=== PATIENT | male | born 1960 | race American Indian/Alaskan Native ===

== ENCOUNTER 2017-07-18 09:00 | Outpatient (CLI) | payer BC, OTHER ==
--- NOTE | 2017-07-18 10:14 | Ultrasound Report ---
ULTRASOUND RENAL INDICATION: CKD. COMPARISON: None similar at this institution. FINDINGS: Renal sonography suggests mild increased renal cortical echogenicity. Grossly preserved contours. No hydronephrosis. RIGHT KIDNEY measures 10.6 x 5.2 x 6.3 cm with cortical thickness of 2.8 cm. A 2.7 x 2.4 cm upper to mid renal cortical cyst, image 9. LEFT KIDNEY estimated at 10.2 x 6 x 4.8 cm with cortical thickness of 1.9 cm. Couple of small hypoechoic foci/possible cysts measuring 0.7-0.9 cm incidentally seen. URINARY BLADDER appears grossly unremarkable. CONCLUSION: Medical renal disease and small bilateral renal cysts without acute renal sonographic abnormality, as described. Please correlate. Thank you for the opportunity to participate in this patient's care.
== END 2017-07-18 09:01 | disposition home or self-care (01) ==
LOC: US 09:00
PROVIDERS: ATTEND Internal Medicine
DX: I12.9 Hypertensive chronic kidney disease with stage 1 through stage 4 chronic kidney disease, or unspecified chronic kidney disease (principal); N18.4 Chronic kidney disease, stage 4 (severe); N28.1 Cyst of kidney, acquired; J45.909 Unspecified asthma, uncomplicated
CPT/HCPCS: 76770

== ENCOUNTER 2017-08-27 11:05 | Outpatient (CLI) | payer BC, OTHER ==
[2017-08-27 11:28] LABS: Albumin 3.8 g/dL (3.9-5); BUN/Creatinine Ratio 11; Blood Urea Nitrogen 37 mg/dL (9-20); Calcium 9.1 mg/dL (8.4-10.2); Hemolysis Index 8
[2017-08-27 13:50] LABS: Creatinine,Urine 68.9 mg/dL (0.1-20.0)
[2017-08-27 14:04] LABS: Protein/Creatinine Ratio,Urine 3.02
[2017-08-27 19:12] LABS: Hematocrit 39.9 % (35.5-45.6); Hemoglobin 12.9 gm/dl (11.8-15.2); Mean Corpuscular HGB Conc 32 % (32-34); Mean Corpuscular Volume 76 fl (84-94); Platelet Count 224 K/mm3 (140-440); Red Blood Count 5.26 M/mm3 (3.65-5.03); Red Cell Distribution Width 16.1 % (13.2-15.2)
[2017-08-27 19:22] LABS: Mean Corpuscular Hemoglobin 25 pg (28-32)
[2017-08-28 06:59] LABS: Alanine Aminotransferase 22 units/L (7-56)
[2017-08-28 07:34] LABS: Microalbumin/Creatinine Ratio 1911.4 ug/mg
[2017-08-28 08:00] LABS: Chol/HDL Ratio 4.68 %; HDL Cholesterol 41 mg/dL (40-59); LDL Cholesterol,Direct 127 mg/dL (50-130)
== END 2017-08-27 11:06 | disposition home or self-care (01) ==
LOC: LAB 11:05
PROVIDERS: ATTEND Internal Medicine
DX: I12.9 Hypertensive chronic kidney disease with stage 1 through stage 4 chronic kidney disease, or unspecified chronic kidney disease (principal); N18.4 Chronic kidney disease, stage 4 (severe); E11.22 Type 2 diabetes mellitus with diabetic chronic kidney disease; E11.65 Type 2 diabetes mellitus with hyperglycemia; E78.5 Hyperlipidemia, unspecified; R80.9 Proteinuria, unspecified; Z79.899 Other long term (current) drug therapy
CPT/HCPCS: 36415; 80048; 80053; 80061; 82040; 82043; 82570; 83036; 84100; 84156; 85027

== ENCOUNTER 2018-01-21 15:10 | Outpatient (CLI) | payer BC, OTHER ==
[2018-01-21 15:43] LABS: Hematocrit 39.5 % (35.5-45.6); Hemoglobin 12.8 gm/dl (11.8-15.2); Mean Corpuscular HGB Conc 33 % (32-34); Mean Corpuscular Volume 77 fl (84-94); Platelet Count 237 K/mm3 (140-440); Red Blood Count 5.13 M/mm3 (3.65-5.03); Red Cell Distribution Width 15.5 % (13.2-15.2)
[2018-01-21 16:02] LABS: Creatinine,Urine 78.3 mg/dL (0.1-20.0); Protein/Creatinine Ratio,Urine 1.26
[2018-01-21 16:07] LABS: Mean Corpuscular Hemoglobin 25 pg (28-32)
[2018-01-21 16:29] LABS: Albumin 3.6 g/dL (3.9-5); Calcium 8.9 mg/dL (8.4-10.2)
== END 2018-01-21 15:11 | disposition home or self-care (01) ==
LOC: LAB 15:10
PROVIDERS: ATTEND Internal Medicine
DX: I12.9 Hypertensive chronic kidney disease with stage 1 through stage 4 chronic kidney disease, or unspecified chronic kidney disease (principal); E11.22 Type 2 diabetes mellitus with diabetic chronic kidney disease; R80.0 Isolated proteinuria; N18.4 Chronic kidney disease, stage 4 (severe); E87.5 Hyperkalemia; E66.9 Obesity, unspecified; N25.81 Secondary hyperparathyroidism of renal origin; E78.5 Hyperlipidemia, unspecified; E78.00 Pure hypercholesterolemia, unspecified; J45.909 Unspecified asthma, uncomplicated; G47.37 Central sleep apnea in conditions classified elsewhere; Z79.4 Long term (current) use of insulin; Z88.6 Allergy status to analgesic agent
CPT/HCPCS: 36415; 80048; 82040; 82570; 84100; 84156; 85027

== ENCOUNTER 2018-08-19 12:48 | Outpatient (CLI) | payer BC, OTHER ==
[2018-08-19 13:34] LABS: Hematocrit 41.2 % (35.5-45.6); Hemoglobin 13.4 gm/dl (11.8-15.2); Mean Corpuscular HGB Conc 32 % (32-34); Mean Corpuscular Volume 76 fl (84-94); Platelet Count 290 K/mm3 (140-440); Red Blood Count 5.43 M/mm3 (3.65-5.03); Red Cell Distribution Width 16.5 % (13.2-15.2)
[2018-08-19 14:07] LABS: Calcium 9.2 mg/dL (8.4-10.2)
[2018-08-19 15:56] LABS: Creatinine,Urine 87.8 mg/dL (0.1-20.0); Protein/Creatinine Ratio,Urine 2.21
== END 2018-08-19 12:49 | disposition home or self-care (01) ==
LOC: LAB 12:48
PROVIDERS: ATTEND Internal Medicine
DX: I12.9 Hypertensive chronic kidney disease with stage 1 through stage 4 chronic kidney disease, or unspecified chronic kidney disease (principal); E11.22 Type 2 diabetes mellitus with diabetic chronic kidney disease; N18.4 Chronic kidney disease, stage 4 (severe); R80.0 Isolated proteinuria; E87.5 Hyperkalemia; E66.9 Obesity, unspecified; E78.5 Hyperlipidemia, unspecified; E78.00 Pure hypercholesterolemia, unspecified; J45.909 Unspecified asthma, uncomplicated; Z79.4 Long term (current) use of insulin
CPT/HCPCS: 36415; 80048; 82040; 82570; 84100; 84156; 85027

== ENCOUNTER 2018-11-06 09:50 | Outpatient (CLI) | payer BC, OTHER ==
[2018-11-06 10:30] LABS: Hematocrit 41.9 % (35.5-45.6); Hemoglobin 13.6 gm/dl (11.8-15.2); Mean Corpuscular HGB Conc 33 % (32-34); Mean Corpuscular Volume 76 fl (84-94); Platelet Count 250 K/mm3 (140-440); Red Blood Count 5.54 M/mm3 (3.65-5.03); Red Cell Distribution Width 16.4 % (13.2-15.2)
[2018-11-06 10:53] LABS: Albumin 3.8 g/dL (3.9-5); Calcium 9.3 mg/dL (8.4-10.2)
[2018-11-06 11:21] LABS: Creatinine,Urine 81.1 mg/dL (0.1-20.0)
[2018-11-06 12:06] LABS: Creatinine Clearance Urine 41.45
== END 2018-11-06 09:51 | disposition home or self-care (01) ==
LOC: LAB 09:50
PROVIDERS: ATTEND Internal Medicine
DX: I12.9 Hypertensive chronic kidney disease with stage 1 through stage 4 chronic kidney disease, or unspecified chronic kidney disease (principal); E11.22 Type 2 diabetes mellitus with diabetic chronic kidney disease; N18.4 Chronic kidney disease, stage 4 (severe); E87.5 Hyperkalemia; E66.9 Obesity, unspecified; N25.81 Secondary hyperparathyroidism of renal origin; G47.37 Central sleep apnea in conditions classified elsewhere; R80.0 Isolated proteinuria; Z79.4 Long term (current) use of insulin
CPT/HCPCS: 36415; 80048; 82040; 82565; 82570; 82575; 84100; 84156; 85027

== ENCOUNTER 2019-03-24 11:28 | Outpatient (CLI) | payer BC, OTHER ==
[2019-03-24 11:58] LABS: Hematocrit 41.6 % (35.5-45.6); Hemoglobin 13.4 gm/dl (11.8-15.2); Mean Corpuscular HGB Conc 32 % (32-34); Mean Corpuscular Volume 77 fl (84-94); Platelet Count 253 K/mm3 (140-440); Red Blood Count 5.44 M/mm3 (3.65-5.03); Red Cell Distribution Width 15.8 % (13.2-15.2)
[2019-03-24 12:20] LABS: Calcium 9.3 mg/dL (8.4-10.2); Chol/HDL Ratio 5.05 %
[2019-03-24 15:19] LABS: Creatinine,Urine 88.6 mg/dL (0.1-20.0); Protein/Creatinine Ratio,Urine 2.22
[2019-03-27 14:54] LABS: Vitamin D, 25-OH, D2 <4 ng/mL
== END 2019-03-24 11:29 | disposition home or self-care (01) ==
LOC: LAB 11:28
PROVIDERS: ATTEND Internal Medicine
DX: I12.9 Hypertensive chronic kidney disease with stage 1 through stage 4 chronic kidney disease, or unspecified chronic kidney disease (principal); E11.22 Type 2 diabetes mellitus with diabetic chronic kidney disease; N18.4 Chronic kidney disease, stage 4 (severe); R80.0 Isolated proteinuria; E87.5 Hyperkalemia; E66.9 Obesity, unspecified; N25.81 Secondary hyperparathyroidism of renal origin; G47.37 Central sleep apnea in conditions classified elsewhere; R60.1 Generalized edema; E78.2 Mixed hyperlipidemia; E78.00 Pure hypercholesterolemia, unspecified; J45.909 Unspecified asthma, uncomplicated; Z79.4 Long term (current) use of insulin
CPT/HCPCS: 36415; 80053; 80061; 82040; 82306; 82570; 84100; 84156; 85027

== ENCOUNTER 2019-11-05 12:05 | Outpatient (CLI) | payer BC, OTHER ==
[2019-11-05 12:49] LABS: Basophils # (Auto) 0.1 K/mm3 (0.0-0.1); Basophils % (Auto) 1.1 % (0.0-1.8); Eosinophils # (Auto) 0.4 K/mm3 (0.0-0.4); Hematocrit 39.1 % (35.5-45.6); Hemoglobin 12.4 gm/dl (11.8-15.2); Lymphocytes # (Auto) 2.5 K/mm3 (1.2-5.4); Lymphocytes % (Auto) 27.8 % (13.4-35.0); Mean Corpuscular HGB Conc 32 % (32-34); Mean Corpuscular Volume 78 fl (84-94); Monocytes # (Auto) 0.9 K/mm3 (0.0-0.8); Monocytes % (Auto) 9.5 % (0.0-7.3); Platelet Count 269 K/mm3 (140-440); Red Blood Count 5.04 M/mm3 (3.65-5.03); Red Cell Distribution Width 15.8 % (13.2-15.2)
[2019-11-05 13:11] LABS: Albumin 3.8 g/dL (3.9-5); Calcium 9.1 mg/dL (8.4-10.2)
[2019-11-05 13:43] LABS: Erythrocyte Sedimentation Rate 45 mm/Hr (0-20)
--- NOTE | 2019-11-05 13:53 | XRay Report ---
LEFT FOOT 3 VIEWS INDICATION / CLINICAL INFORMATION: L08.9Local infection of the skin and subcutaneous tissue, unspeci. COMPARISON: None available. FINDINGS: Advanced degenerative change in the first metatarsophalangeal joint. Small plantar calcaneal spur. No other significant skeletal abnormality. Signer Name: Robe Hinojosa MD FACJoanna Signed: 11/05/2019 1:48 PM Workstation Name: [id number]
== END 2019-11-05 12:06 | disposition home or self-care (01) ==
LOC: LAB 12:05
PROVIDERS: ATTEND Podiatrist Foot & Ankle Surgery
DX: E11.51 Type 2 diabetes mellitus with diabetic peripheral angiopathy without gangrene (principal); L08.9 Local infection of the skin and subcutaneous tissue, unspecified
CPT/HCPCS: 36415; 80053; 84550; 85025; 85652

== ENCOUNTER 2019-12-01 07:12 | Outpatient (CLI) | payer BC ==
[2019-12-01 08:24] LABS: Albumin 3.9 g/dL (3.9-5)
== END 2019-12-01 07:13 | disposition home or self-care (01) ==
LOC: LAB 07:12
PROVIDERS: ATTEND Internal Medicine
DX: N18.4 Chronic kidney disease, stage 4 (severe) (principal)
CPT/HCPCS: 36415; 80053

== ENCOUNTER 2020-01-07 15:35 | Outpatient (CLI) | payer BC ==
[2020-01-07 16:31] LABS: Albumin 3.8 g/dL (3.9-5); Basophils # (Auto) 0.1 K/mm3 (0.0-0.1); Calcium 8.9 mg/dL (8.4-10.2); Eosinophils # (Auto) 0.5 K/mm3 (0.0-0.4); Eosinophils % (Auto) 6.4 % (0.0-4.3); Hematocrit 38.4 % (35.5-45.6); Hemoglobin 12.3 gm/dl (11.8-15.2); Lymphocytes # (Auto) 2.3 K/mm3 (1.2-5.4); Lymphocytes % (Auto) 27.4 % (13.4-35.0); Mean Corpuscular HGB Conc 32 % (32-34); Mean Corpuscular Volume 78 fl (84-94); Monocytes # (Auto) 0.8 K/mm3 (0.0-0.8); Monocytes % (Auto) 9.3 % (0.0-7.3); Platelet Count 252 K/mm3 (140-440); Red Blood Count 4.95 M/mm3 (3.65-5.03); Red Cell Distribution Width 16.2 % (13.2-15.2)
[2020-01-07 16:38] LABS: Creatinine 24 Hour,Urine 2.2 (0.8-2.8); Creatinine,Urine 45.5 mg/dL (0.1-20.0)
== END 2020-01-07 15:36 | disposition home or self-care (01) ==
LOC: LAB 15:35
PROVIDERS: ATTEND Internal Medicine
DX: N18.4 Chronic kidney disease, stage 4 (severe) (principal)
CPT/HCPCS: 36415; 80048; 82040; 82565; 82570; 82575; 84100; 84156; 85025

== ENCOUNTER 2020-07-16 09:42 | Outpatient (CLI) | payer BC ==
[2020-07-16 11:35] LABS: Alanine Aminotransferase 15 units/L (7-56); Blood Urea Nitrogen 87 mg/dL (9-20); Chol/HDL Ratio 3.69 %; HDL Cholesterol 53 mg/dL (40-59); Hemolysis Index 4; LDL Cholesterol,Direct 140 mg/dL (50-130)
[2020-07-16 12:22] LABS: BUN/Creatinine Ratio 8
[2020-07-16 14:29] LABS: Creatinine,Urine 71.8 mg/dL (0.1-20.0)
[2020-07-16 15:04] LABS: Microalbumin/Creatinine Ratio 5479.1 ug/mg
== END 2020-07-16 09:43 | disposition home or self-care (01) ==
LOC: LAB 09:42
PROVIDERS: ATTEND Internal Medicine
DX: I10 Essential (primary) hypertension (principal); E11.9 Type 2 diabetes mellitus without complications
CPT/HCPCS: 36415; 80053; 80061; 82043

== ENCOUNTER 2020-07-26 15:20 | Inpatient (IN) | payer BC ==
--- NOTE | 2020-07-26 15:35 | Emergency Department Report ---
Blank Doc - Documentation Documentation: 59-year-old male that was brought by PCP for hypokalemia and acute kidney insu fficiency from lab results. Patient otherwise denies any complaints or symptoms. 1- This initial assessment/diagnostic orders/clinical plan/ treatment(s) is/are subject to change based on pt's health status, clinical progression and re- assessment by fellow clinical providers in the ED. Further treatment and workup at subsequent clinical provers discretion. Patient/guardians urged not to elope from ED as their condition may be serious if not clinically assessed and managed. 2-EKG 3-labs 4-UA
[2020-07-26 16:01] LABS: Basophils # (Auto) 0.2 K/mm3 (0.0-0.1); Basophils % (Auto) 2.2 % (0.0-1.8); Eosinophils # (Auto) 0.3 K/mm3 (0.0-0.4); Eosinophils % (Auto) 4.2 % (0.0-4.3); Hematocrit 31.3 % (35.5-45.6); Hemoglobin 9.9 gm/dl (11.8-15.2); Lymphocytes # (Auto) 2.4 K/mm3 (1.2-5.4); Lymphocytes % (Auto) 29.2 % (13.4-35.0); Mean Corpuscular HGB Conc 32 % (32-34); Mean Corpuscular Volume 80 fl (84-94); Monocytes # (Auto) 0.8 K/mm3 (0.0-0.8); Monocytes % (Auto) 9.7 % (0.0-7.3); Platelet Count 245 K/mm3 (140-440); Red Blood Count 3.92 M/mm3 (3.65-5.03); Red Cell Distribution Width 16.3 % (13.2-15.2)
[2020-07-26 16:08] LABS: INR 0.89 (0.87-1.13)
[2020-07-26 16:09] LABS: Partial Thromboplastin Time 27.5 Sec. (24.2-36.6)
[2020-07-26 16:22] LABS: Alanine Aminotransferase 14 units/L (7-56); Albumin 2.9 g/dL (3.9-5); Blood Urea Nitrogen 83 mg/dL (9-20); Calcium 8.4 mg/dL (8.4-10.2); Hemolysis Index 8
[2020-07-26 16:30] LABS: Bilirubin,Urine NEG (Negative); Blood,Urine NEG (Negative); Color,Urine Straw (Yellow); Urobilinogen,Urine < 2.0 mg/dL (<2.0); WBC,Urine < 1.0 /HPF (0.0-6.0)
[2020-07-26 16:34] LABS: BUN/Creatinine Ratio 7
[2020-07-26 16:43] LABS: Protein,Urine >500 mg/dL (Negative)
[2020-07-26 16:58] LABS: Chol/HDL Ratio 3.43 %; HDL Cholesterol 57 mg/dL (40-59); LDL Cholesterol,Direct 137 mg/dL (50-130)
--- NOTE | 2020-07-26 17:37 | Emergency Department Report ---
ED General Adult HPI - General Chief complaint: Recheck/Abnormal Lab/Rx Stated complaint: ABNORMAL LABS Time Seen by Provider: 07/26/20 15:34 Source: patient Mode of arrival: Ambulatory Limitations: No Limitations - History of Present Illness Initial comments: The patient presents to the emergency department with a chief complaint of abnormal labs. Patient states that he had labs done by his clinical assistant and was given a phone call due to abnormal results. Was told to report to the emergency department for further evaluation. Patient denies chest pain, shortness of breath, or abdominal pain. -: unknown Severity scale (0 -10): 0 Consistency: constant Improves with: none Worsens with: none Associated Symptoms: denies other symptoms Treatments Prior to Arrival: none - Related Data Previous Rx's Medication Instructions Recorded Last Taken Type Metoprolol [Lopressor TAB] 50 mg PO BID #60 tablet 03/07/13 Unknown Rx amLODIPine 10 mg PO QDAY #30 tablet 03/07/13 Unknown Rx Allergies Allergy/AdvReac Type Severity Reaction Status Date / Time aspirin Allergy Shortness Verified 03/06/13 06:33 of Breath ED Review of Systems ROS: Stated complaint: ABNORMAL LABS Other details as noted in HPI Comment: All other systems reviewed and negative Constitutional: denies: chills, fever Eyes: denies: eye pain, eye discharge, vision change ENT: denies: ear pain, throat pain Respiratory: denies: cough, shortness of breath, wheezing Cardiovascular: denies: chest pain, palpitations Endocrine: no symptoms reported Gastrointestinal: denies: abdominal pain, nausea, diarrhea Genitourinary: denies: urgency, dysuria Musculoskeletal: denies: back pain, joint swelling, arthralgia Skin: denies: rash, lesions Neurological: denies: headache, weakness, paresthesias Psychiatric: denies: anxiety, depression Hematological/Lymphatic: denies: easy bleeding, easy bruising ED Past Medical Hx - Past Medical History Previous Medical History?: Yes Hx Hypertension: Yes Hx Diabetes: Yes Hx Sickle Cell Disease: Yes (sicle cell trait) Hx Asthma: Yes (childhood) - Social History Smoking Status: Never Smoker Substance Use Type: None - Medications Home Medications: Home Medications Medication Instructions Recorded Confirmed Last Taken Type Metoprolol [Lopressor TAB] 50 mg PO BID #60 tablet 03/07/13 Unknown Rx amLODIPine 10 mg PO QDAY #30 tablet 03/07/13 Unknown Rx ED Physical Exam - General Limitations: No Limitations General appearance: alert, in no apparent distress - Head Head exam: Present: atraumatic, normocephalic - Eye Eye exam: Present: normal appearance, PERRL, EOMI - ENT ENT exam: Present: mucous membranes moist - Neck Neck exam: Present: normal inspection - Respiratory Respiratory exam: Present: normal lung sounds bilaterally. Absent: respiratory distress - Cardiovascular Cardiovascular Exam: Present: regular rate, normal rhythm. Absent: systolic murmur, diastolic murmur, rubs, gallop - GI/Abdominal GI/Abdominal exam: Present: soft, normal bowel sounds. Absent: distended, tenderness - Rectal Rectal exam: Present: deferred - Extremities Exam Extremities exam: Present: normal inspection - Back Exam Back exam: Present: normal inspection - Neurological Exam Neurological exam: Present: alert, oriented X3, CN II-XII intact. Absent: motor sensory deficit - Psychiatric Psychiatric exam: Present: normal affect, normal mood - Skin Skin exam: Present: warm, dry, intact, normal color. Absent: rash ED Course Vital Signs 07/26/20 07/26/20 15:26 16:08 Temperature 98.4 F Pulse Rate 63 Respiratory 16 18 Rate Blood Pressure 95/74 [Right] O2 Sat by Pulse 99 Oximetry ED Medical Decision Making - Lab Data Result diagrams: 07/26/20 15:39 07/26/20 15:39 Lab Results 07/26/20 07/26/20 07/26/20 Range/Units 15:39 15:39 15:39 WBC 8.0 (4.5-11.0) K/mm3 RBC 3.92 (3.65-5.03) M/mm3 Hgb 9.9 L (11.8-15.2) gm/dl Hct 31.3 L (35.5-45.6) % MCV 80 L (84-94) fl MCH 25 L (28-32) pg MCHC 32 (32-34) % RDW 16.3 H (13.2-15.2) % Plt Count 245 (140-440) K/mm3 Lymph % (Auto) 29.2 (13.4-35.0) % Mckenzie % (Auto) 9.7 H (0.0-7.3) % Eos % (Auto) 4.2 (0.0-4.3) % Baso % (Auto) 2.2 H (0.0-1.8) % Lymph # (Auto) 2.4 (1.2-5.4) K/mm3 Mckenzie # (Auto) 0.8 (0.0-0.8) K/mm3 Eos # (Auto) 0.3 (0.0-0.4) K/mm3 Baso # (Auto) 0.2 H (0.0-0.1) K/mm3 Seg Neutrophils % 54.7 (40.0-70.0) % Seg Neutrophils # 4.4 (1.8-7.7) K/mm3 PT 11.8 L (12.2-14.9) Sec. INR 0.89 (0.87-1.13) APTT 27.5 (24.2-36.6) Sec. Sodium 133 L (137-145) mmol/L Potassium 6.1 H* (3.6-5.0) mmol/L Chloride 104.4 (98-107) mmol/L Carbon Dioxide 17 L (22-30) mmol/L Anion Gap 18 mmol/L BUN 83 H (9-20) mg/dL Creatinine 11.1 H (0.8-1.3) mg/dL Estimated GFR 6 ml/min BUN/Creatinine Ratio 7 % Glucose 160 H (75-100) mg/dL Calcium 8.4 (8.4-10.2) mg/dL Total Bilirubin < 0.20 (0.1-1.2) mg/dL AST 14 (5-40) units/L ALT 14 (7-56) units/L Alkaline Phosphatase 37 (35-129) units/L Troponin T 0.164 H* (0.00-0.029) ng/mL Total Protein 6.2 L (6.3-8.2) g/dL Albumin 2.9 L (3.9-5) g/dL Albumin/Globulin Ratio 0.9 % Triglycerides 78 (2-149) mg/dL Cholesterol 196 (50-199) mg/dL LDL Cholesterol Direct 137 H (50-130) mg/dL HDL Cholesterol 57 (40-59) mg/dL Cholesterol/HDL Ratio 3.43 % Urine Color (Yellow) Urine Turbidity (Clear) Urine pH (5.0-7.0) Ur Specific Thompson (1.003-1.030) Urine Protein (Negative) mg/dL Urine Glucose (UA) (Negative) mg/dL Urine Ketones (Negative) mg/dL Urine Blood (Negative) Urine Nitrite (Negative) Urine Bilirubin (Negative) Urine Urobilinogen (<2.0) mg/dL Ur Leukocyte Esterase (Negative) Urine WBC (Auto) (0.0-6.0) /HPF Urine RBC (Auto) (0.0-6.0) /HPF U Epithel Cells (Auto) (0-13.0) /HPF 07/26/20 Range/Units 16:10 WBC (4.5-11.0) K/mm3 RBC (3.65-5.03) M/mm3 Hgb (11.8-15.2) gm/dl Hct (35.5-45.6) % MCV (84-94) fl MCH (28-32) pg MCHC (32-34) % RDW (13.2-15.2) % Plt Count (140-440) K/mm3 Lymph % (Auto) (13.4-35.0) % Mckenzie % (Auto) (0.0-7.3) % Eos % (Auto) (0.0-4.3) % Baso % (Auto) (0.0-1.8) % Lymph # (Auto) (1.2-5.4) K/mm3 Mckenzie # (Auto) (0.0-0.8) K/mm3 Eos # (Auto) (0.0-0.4) K/mm3 Baso # (Auto) (0.0-0.1) K/mm3 Seg Neutrophils % (40.0-70.0) % Seg Neutrophils # (1.8-7.7) K/mm3 PT (12.2-14.9) Sec. INR (0.87-1.13) APTT (24.2-36.6) Sec. Sodium (137-145) mmol/L Potassium (3.6-5.0) mmol/L Chloride (98-107) mmol/L Carbon Dioxide (22-30) mmol/L Anion Gap mmol/L BUN (9-20) mg/dL Creatinine (0.8-1.3) mg/dL Estimated GFR ml/min BUN/Creatinine Ratio % Glucose (75-100) mg/dL Calcium (8.4-10.2) mg/dL Total Bilirubin (0.1-1.2) mg/dL AST (5-40) units/L ALT (7-56) units/L Alkaline Phosphatase (35-129) units/L Troponin T (0.00-0.029) ng/mL Total Protein (6.3-8.2) g/dL Albumin (3.9-5) g/dL Albumin/Globulin Ratio % Triglycerides (2-149) mg/dL Cholesterol (50-199) mg/dL LDL Cholesterol Direct (50-130) mg/dL HDL Cholesterol (40-59) mg/dL Cholesterol/HDL Ratio % Urine Color Straw (Yellow) Urine Turbidity Clear (Clear) Urine pH 6.0 (5.0-7.0) Ur Specific Thompson 1.012 (1.003-1.030) Urine Protein >500 (Negative) mg/dL Urine Glucose (UA) 150 (Negative) mg/dL Urine Ketones Neg (Negative) mg/dL Urine Blood Neg (Negative) Urine Nitrite Neg (Negative) Urine Bilirubin Neg (Negative) Urine Urobilinogen < 2.0 (<2.0) mg/dL Ur Leukocyte Esterase Neg (Negative) Urine WBC (Auto) < 1.0 (0.0-6.0) /HPF Urine RBC (Auto) 1.0 (0.0-6.0) /HPF U Epithel Cells (Auto) < 1.0 (0-13.0) /HPF - EKG Data -: EKG Interpreted by Ks EKG shows normal: sinus rhythm Rate: normal - EKG Data Interpretation: other (Nonspecific T wave abnormality) - Medical Decision Making Spoke to Dr. Holloway the covering clinical assistant for the patient's group. Patient was given IV insulin, IV calcium chloride, IV sodium bicarb, IV D50, Kayexalate Results discussed with patient Patient's troponin likely elevated secondary to his renal function Critical Care Time: Yes Critical care time in (mins) excluding proc time.: 35 Critical care attestation.: If time is entered above; I have spent that time in minutes in the direct care of this critically ill patient, excluding procedure time. ED Disposition Clinical Impression: Hyperkalemia, Renal failure (ARF), acute on chronic Disposition: DC-09 OP ADMIT IP TO THIS HOSP Is pt being admited?: Yes Does the pt Need Aspirin: No Condition: Fair Referrals: TYSHAWN COFFMAN MD [Primary Care Provider] - 3-5 Days
[2020-07-26] MEDS ORDERED: SODIUM POLYSTYRENE 15 GM/60 ML ORAL LIQD PO ONE (17:58)
[2020-07-26] MEDS ORDERED: INSULIN REGULAR, HUMAN 100 UNITS/1 ML IV ONE (17:58)
[2020-07-26] MEDS ORDERED: DEXTROSE 50% IN WATER (25GM) 50 ML SYRINGE IV ONE (17:59)
[2020-07-26] MEDS ORDERED: SODIUM BICARB 8.4% 50 MEQ/50 ML SYRINGE IV ONE (17:59)
[2020-07-26] MEDS ORDERED: ALBUTEROL 2.5 MG/3 ML NEBU IH PRN (18:11)
[2020-07-26] MEDS ORDERED: ONDANSETRON 4 MG/2 ML INJ IV PRN (18:11)
--- NOTE | 2020-07-26 18:14 | History and Physical Report ---
History of Present Illness Chief complaint: My kidney doctor called me to come in History of present illness: 59 YO Male with Obesity, SCD Trait, HTN, DM, Asthma presents to ED for evalaution. Pt reports "my kidneys are acting up". Patient states his he was seen by his cornice maker and was found to have abnormal labs. Patient was instructed to seek further care at [facility] for further care and evaluation. Patient transported to [facility] via private vehicle for further care and evaluation of the aforementioned symptoms. Patient seen and evaluated in the emergency department. All lab and imaging studies reviewed. Patient found to have elevated creatinine consistent with end-stage renal disease, metabolic acidosis, hyperkalemia. Patient admitted to IM due to increased risk of renal decompensation. Patient initiated on bicarbonate therapy. Routine EKG did not reveal EKG changes. Patient denies fever, chills, chest pain, palpitation, productive cough, skin rash, recent ill contacts, trauma, known exposure to COVID-19. No prior admission for review. All medication listed at time of admission has been reconciled. Advanced care planning conducted in ED. Nephrology team consulted in ED. Dialysis as per renal team. Past History Past Medical History: diabetes, hypertension Past Surgical History: No surgical history, Other (Reviewed) Social history: single. denies: smoking, alcohol abuse, prescription drug abuse Family history: diabetes, hypertension Medications and Allergies Allergies Allergy/AdvReac Type Severity Reaction Status Date / Time aspirin Allergy Shortness Verified 03/06/13 06:33 of Breath Home Medications Medication Instructions Recorded Confirmed Last Taken Type Metoprolol [Lopressor TAB] 50 mg PO BID #60 tablet 03/07/13 Unknown Rx amLODIPine 10 mg PO QDAY #30 tablet 03/07/13 Unknown Rx Active Meds: Active Medications Acetaminophen (Acetaminophen 325 Mg Tab) 650 mg PO Q4H PRN PRN Reason: Pain MILD(1-3)/Fever >100.5/MICHAELS Albuterol (Albuterol 2.5 Mg/3 Ml Nebu) 2.5 mg IH Q4HRT PRN PRN Reason: Shortness Of Breath Amlodipine Besylate (Amlodipine 5 Mg Tab) 10 mg PO QDAY JT Calcium Chloride 1,000 mg/ (Sodium Chloride) 110 mls @ 660 mls/hr IV ONCE ONE Stop: 07/26/20 19:08 Metoprolol Tartrate (Metoprolol Tartrate 50 Mg Tab) 50 mg PO BID COUNTS INCLUDE 234 BEDS AT THE [facility] Ondansetron HCl (Ondansetron 4 Mg/2 Ml Inj) 4 mg IV Q8H PRN PRN Reason: Nausea And Vomiting Sodium Chloride (Sodium Chloride 0.9% 10 Ml Flush Syringe) 10 ml IV BID COUNTS INCLUDE 234 BEDS AT THE [facility] Sodium Chloride (Sodium Chloride 0.9% 10 Ml Flush Syringe) 10 ml IV PRN PRN PRN Reason: LINE FLUSH Review of Systems Constitutional: no weight loss, no weight gain, no fever, no chills Ears, nose, mouth and throat: no ear pain, no ear discharge, no tinnitis, no nose pain, no nasal congestion, no nasal discharge Cardiovascular: no chest pain, no orthopnea, no rapid/irregular heart beat, no edema, no syncope Respiratory: no cough, no excessive sputum, no shortness of breath, no dyspnea on exertion Gastrointestinal: no abdominal pain, no nausea, no vomiting, no diarrhea, no constipation Genitourinary Male: no hematuria, no flank pain, no discharge, no urinary frequency, no urinary hesitancy Rectal: no pain, no incontinence, no bleeding Musculoskeletal: no neck stiffness, no neck pain, no arm numbness/tingling, no low back pain, no shooting leg pain Integumentary: no rash, no pruritis, no redness, no sores, no wounds Neurological: no head injury, no transient paralysis, no weakness, no numbness, no syncope Psychiatric: no anxiety, no change in sleep habits, no sleep disturbances, no insomnia, no change in appetite, no disorientation Endocrine: no cold intolerance, no heat intolerance, no excessive thirst, no polydipsia, no polyuria, no excessive sweating Hematologic/Lymphatic: no easy bruising, no lymphadenopathy, no lymphedema Allergic/Immunologic: no urticaria, no allergic rhinitis, no wheezing, no anaphylaxis, no angioedema Exam - Constitutional Vitals: Temp Pulse Resp BP Pulse Ox 98.4 F 63 18 95/74 99 07/26/20 15:26 07/26/20 15:26 07/26/20 16:08 07/26/20 15:26 07/26/20 15:26 General appearance: Present: mild distress, obese - EENT Eyes: Present: PERRL ENT: hearing intact, clear oral mucosa - Neck Neck: Present: supple, normal ROM - Respiratory Respiratory effort: normal Respiratory: bilateral: CTA - Cardiovascular Heart Sounds: Present: S1 & S2. Absent: rub, click - Extremities Extremities: pulses symmetrical, No edema Peripheral Pulses: within normal limits - Abdominal General gastrointestinal: Present: soft, non-tender, non-distended, normal bowel sounds Male genitourinary: Present: normal - Integumentary Integumentary: Present: clear, warm, dry - Musculoskeletal Musculoskeletal: gait normal, strength equal bilaterally - Psychiatric Psychiatric: appropriate mood/affect, intact judgment & insight - Neurologic Neurologic: CNII-XII intact, moves all extremities HEART Score - HEART Score Troponin: Troponin T 0.164 ng/mL (0.00-0.029) H* 07/26/20 15:39 Results - Labs CBC & Chem 7: 07/26/20 15:39 07/26/20 15:39 Labs: Abnormal lab results 07/26/20 07/26/20 07/26/20 Range/Units 15:39 15:39 15:39 Hgb 9.9 L (11.8-15.2) gm/dl Hct 31.3 L (35.5-45.6) % MCV 80 L (84-94) fl MCH 25 L (28-32) pg RDW 16.3 H (13.2-15.2) % [place] % (Auto) 9.7 H (0.0-7.3) % Baso % (Auto) 2.2 H (0.0-1.8) % Baso # (Auto) 0.2 H (0.0-0.1) K/mm3 PT 11.8 L (12.2-14.9) Sec. Sodium 133 L (137-145) mmol/L Potassium 6.1 H* (3.6-5.0) mmol/L Carbon Dioxide 17 L (22-30) mmol/L BUN 83 H (9-20) mg/dL Creatinine 11.1 H (0.8-1.3) mg/dL Glucose 160 H (75-100) mg/dL Troponin T 0.164 H* (0.00-0.029) ng/mL Total Protein 6.2 L (6.3-8.2) g/dL Albumin 2.9 L (3.9-5) g/dL LDL Cholesterol Direct 137 H (50-130) mg/dL Assessment and Plan - Patient Problems (1) End stage renal disease Current Visit: Yes Status: Acute Plan to address problem: Nephrology team consulted in ED, dialysis as per renal team, strict I's/O, monitor urine output every shift, PSA level, avoid nephrotoxic agents. (2) Metabolic acidosis Current Visit: Yes Status: Acute Plan to address problem: IV bicarbonate therapy, supportive care, BMP, repeat BMP in a.m. (3) Hyperkalemia Current Visit: Yes Status: Acute Plan to address problem: Calcium gluconate, Kayexalate, insulin therapy, repeat BMP in a.m. No EKG changes. Telemetry monitoring. (4) Hyperlipidemia Current Visit: No Status: Chronic Qualifiers: Hyperlipidemia type: mixed hyperlipidemia Qualified Code(s): E78.2 - Mixed hyperlipidemia Plan to address problem: Supportive care, balanced diet, low-cholesterol diet, statin therapy as clinically indicated. (5) DVT prophylaxis Current Visit: Yes Status: Acute Plan to address problem: SCD to bilateral lower extremities while in bed, patient is ambulatory. (6) Advance care planning Current Visit: Yes Status: Acute Plan to address problem: Disease education conducted, patient is full code, care plan discussed, prognosis discussed, diagnosis discussed, patient knowledges understanding and agreement with care plan, +30 minutes.
[2020-07-26] MEDS ORDERED: CALCIUM CHLORIDE 1,000 MG in SODIUM CHLORIDE 0.9% 100 ML IV ONE (18:59)
[2020-07-26] MEDS ORDERED: DEXTROSE 50% IN WATER (25GM) 50 ML VIAL IV ONE (21:01)
--- NOTE | 2020-07-26 21:03 | Event Note ---
Patient became hypoglycemic after receiving medications for hyperkalemia including insulin and glucose. 1 hour ago glucose was in the 40s and patient provided juice and food. Now glucose remains in the 50s upon repeat check. 2 Amps of D50 ordered and I informed nurse to inform hospitalist of hypoglycemia and treatment thus far. Pt is alert.
[2020-07-26] MEDS: DEXTROSE 50% IN WATER (25GM) 50 ML SYRINGE IV ONE ×2 (21:11→22:12)
[2020-07-26] MEDS: METOPROLOL TARTRATE 50 MG TAB PO SCH (22:13)
[2020-07-26] MEDS ORDERED: SODIUM CHLORIDE 0.9% 100 ML IV PRN (23:26)
[2020-07-27 06:28] LABS: Calcium 8.5 mg/dL (8.4-10.2)
[2020-07-27 07:33] LABS: Hepatitis B Surface Antigen Non-Reactive (Negative); Hepatitis C Virus Antibody Non-Reactive (NonReactive)
[2020-07-27] MEDS: METOPROLOL TARTRATE 50 MG TAB PO SCH ×2 (08:30→21:23)
[2020-07-27] MEDS: amLODIPine 10 MG TAB PO SCH (08:30)
--- NOTE | 2020-07-27 09:09 | Consultation ---
History of Present Illness - Reason for Consult Consult date: 07/27/20 end stage renal disease - History of Present Illness Mr. Albarado is a 59yo gentleman with stage V CKD who presents to the ED upon direction of PCP and gyro mechanic due to abnormal labs. Patient was last seen by SCN in Apr 2019. At that time, patient's SCr 5.4mg/dL. He presented to his PCP's office and labs were notable for SCr 11mg/dL. He was advised to present to the ED for admission w/ plan to start hemodialysis. Patient denies nausea, vomiting, loss of appetite. He denies SOB. He reports metallic taste. In the ED, labs were notable for K 6.1 which was medically managed. He received d50 and insulin w/ subsequent hypoglycemia. He was transferred to the ICU for management. Past History Past Medical History: diabetes, hypertension Past Surgical History: No surgical history, Other (Reviewed) Social history: single. denies: smoking, alcohol abuse, prescription drug abuse Family history: diabetes, hypertension Medications and Allergies Allergies Allergy/AdvReac Type Severity Reaction Status Date / Time aspirin Allergy Shortness Verified 03/06/13 06:33 of Breath Home Medications Medication Instructions Recorded Confirmed Last Taken Type Metoprolol [Lopressor TAB] 50 mg PO BID #60 tablet 03/07/13 Unknown Rx amLODIPine 10 mg PO QDAY #30 tablet 03/07/13 Unknown Rx Active Meds: Active Medications Acetaminophen (Acetaminophen 325 Mg Tab) 650 mg PO Q4H PRN PRN Reason: Pain MILD(1-3)/Fever >100.5/MICHAELS Albuterol (Albuterol 2.5 Mg/3 Ml Nebu) 2.5 mg IH Q4HRT PRN PRN Reason: Shortness Of Breath Amlodipine Besylate (Amlodipine 10 Mg Tab) 10 mg PO QDAY [facility] Sodium Chloride (Nacl 0.9%) 100 mls @ 999 mls/hr IV BROOKE PRN PRN Reason: Hypotension Metoprolol Tartrate (Metoprolol Tartrate 50 Mg Tab) 50 mg PO BID [facility] Last Admin: 07/26/20 22:13 Dose: 50 mg Documented by: Ondansetron HCl (Ondansetron 4 Mg/2 Ml Inj) 4 mg IV Q8H PRN PRN Reason: Nausea And Vomiting Sodium Chloride (Sodium Chloride 0.9% 10 Ml Flush Syringe) 10 ml IV BID [facility] Last Admin: 07/26/20 22:13 Dose: 10 ml Documented by: Sodium Chloride (Sodium Chloride 0.9% 10 Ml Flush Syringe) 10 ml IV PRN PRN PRN Reason: LINE FLUSH Review of Systems All systems: negative Exam - Vital Signs Vital signs: Vital Signs Temp Pulse Resp BP Pulse Ox 98.4 F 63 16 95/74 99 07/26/20 15:26 07/26/20 15:26 07/26/20 15:26 07/26/20 15:26 07/26/20 15:26 - General Appearance General appearance: well-developed, well-nourished EENT: ATNC Respiratory: Clear to Ascultation Heart: regular, S1S2 Gastrointestinal: Present: normal Integumentary: no rash, warm and dry Neurologic: no focal deficit Results - Lab Results 07/26/20 15:39 07/27/20 05:49 Most recent lab results Calcium 8.5 mg/dL (8.4-10.2) 07/27/20 05:49 Assessment and Plan Impression: * End stage renal disease * Uremia * Hyperkalemia * Hypoglycemia, iatrogenic * Hypertension * Anemia secondary to ESRD Plan: * Consulted Dr. Carrizales for permcath insertion * Hemodialysis to follow * Daily HD x 3 * Continue antiHTN medications * Dose medications for renal functio * AM labs * Outpatient hemodialysis clinic placement
[2020-07-27] MEDS ORDERED: amLODIPine 5 MG TAB PO SCH (10:00)
--- NOTE | 2020-07-27 12:02 | Consultation ---
History of Present Illness - Reason for Consult Consult date: 07/27/20 ESRD Requesting physician: GIOVANNY MARIA - History of Present Illness 59 year old male with obesity, SCD Trait, HTN, DM, Asthma presents to ED for evalaution. Pt reports "my kidneys are acting up". Patient states his he was seen by his molder shoulder pad and was found to have abnormal labs. Patient was instructed to seek further care at [facility] for further care and evaluation. Patient transported to [facility] via private vehicle for further care and evaluation of the aforementioned symptoms. Patient seen and evaluated in the emergency department. All lab and imaging studies reviewed. Patient found to have elevated creatinine consistent with end-stage renal disease, metabolic acidosis, hyperkalemia. Patient admitted to IMCU due to increased risk of renal decompensation. Patient initiated on bicarbonate therapy. Routine EKG did not reveal EKG changes. Patient denies fever, chills, chest pain, palpitation, productive cough, skin rash, recent ill contacts, trauma, known exposure to [place] VID-19. No prior admission for review. All medication listed at time of admission has been reconciled. Advanced care planning conducted in ED. Nephrology team consulted in ED. Dialysis as per renal team. Vascular was then consulted for hemodialysis access placement. Past History Past Medical History: diabetes, hypertension Past Surgical History: No surgical history, Other (Reviewed) Social history: single. denies: smoking, alcohol abuse, prescription drug abuse Family history: diabetes, hypertension Medications and Allergies Allergies Allergy/AdvReac Type Severity Reaction Status Date / Time aspirin Allergy Shortness Verified 03/06/13 06:33 of Breath Home Medications Medication Instructions Recorded Confirmed Last Taken Type Metoprolol [Lopressor TAB] 50 mg PO BID #60 tablet 03/07/13 Unknown Rx amLODIPine 10 mg PO QDAY #30 tablet 03/07/13 Unknown Rx Active Meds: Active Medications Acetaminophen (Acetaminophen 325 Mg Tab) 650 mg PO Q4H PRN PRN Reason: Pain MILD(1-3)/Fever >100.5/MICHAELS Albuterol (Albuterol 2.5 Mg/3 Ml Nebu) 2.5 mg IH Q4HRT PRN PRN Reason: Shortness Of Breath Amlodipine Besylate (Amlodipine 10 Mg Tab) 10 mg PO QDAY JT Last Admin: 07/27/20 08:30 Dose: 10 mg Documented by: Hydralazine HCl (Hydralazine 25 Mg Tab) 50 mg PO Q8HR [facility] Sodium Chloride (Nacl 0.9%) 100 mls @ 999 mls/hr IV BROOKE PRN PRN Reason: Hypotension Metoprolol Tartrate (Metoprolol Tartrate 50 Mg Tab) 50 mg PO BID [facility] Last Admin: 07/27/20 08:30 Dose: 50 mg Documented by: Ondansetron HCl (Ondansetron 4 Mg/2 Ml Inj) 4 mg IV Q8H PRN PRN Reason: Nausea And Vomiting Sodium Chloride (Sodium Chloride 0.9% 10 Ml Flush Syringe) 10 ml IV BID [facility] Last Admin: 07/27/20 09:18 Dose: 10 ml Documented by: Sodium Chloride (Sodium Chloride 0.9% 10 Ml Flush Syringe) 10 ml IV PRN PRN PRN Reason: LINE FLUSH Review of Systems All systems: negative (see HPI) Exam - Constitutional Vitals: Temp Pulse Resp BP Pulse Ox 98.3 F 59 L 16 166/94 89 07/27/20 08:00 07/27/20 10:30 07/27/20 10:30 07/27/20 10:30 07/27/20 10:30 General appearance: Present: no acute distress - EENT Eyes: Present: EOM intact ENT: hearing intact - Respiratory Respiratory effort: normal - Extremities Extremities: normal temperature, normal color - Psychiatric Psychiatric: appropriate mood/affect, cooperative Results - Labs CBC & Chem 7: 07/26/20 15:39 07/27/20 05:49 Labs: Abnormal lab results 07/26/20 07/26/20 07/26/20 Range/Units 15:39 15:39 15:39 Hgb 9.9 L (11.8-15.2) gm/dl Hct 31.3 L (35.5-45.6) % MCV 80 L (84-94) fl MCH 25 L (28-32) pg RDW 16.3 H (13.2-15.2) % [place] % (Auto) 9.7 H (0.0-7.3) % Baso % (Auto) 2.2 H (0.0-1.8) % Baso # (Auto) 0.2 H (0.0-0.1) K/mm3 PT 11.8 L (12.2-14.9) Sec. Sodium 133 L (137-145) mmol/L Potassium 6.1 H* (3.6-5.0) mmol/L Carbon Dioxide 17 L (22-30) mmol/L BUN 83 H (9-20) mg/dL Creatinine 11.1 H (0.8-1.3) mg/dL Glucose 160 H (75-100) mg/dL POC Glucose (70-105) mg/dL Troponin T 0.164 H* (0.00-0.029) ng/mL Total Protein 6.2 L (6.3-8.2) g/dL Albumin 2.9 L (3.9-5) g/dL LDL Cholesterol Direct 137 H (50-130) mg/dL 07/26/20 07/26/20 07/26/20 Range/Units 20:36 21:00 23:39 Hgb (11.8-15.2) gm/dl Hct (35.5-45.6) % MCV (84-94) fl MCH (28-32) pg RDW (13.2-15.2) % [place] % (Auto) (0.0-7.3) % Baso % (Auto) (0.0-1.8) % Baso # (Auto) (0.0-0.1) K/mm3 PT (12.2-14.9) Sec. Sodium (137-145) mmol/L Potassium (3.6-5.0) mmol/L Carbon Dioxide (22-30) mmol/L BUN (9-20) mg/dL Creatinine (0.8-1.3) mg/dL Glucose (75-100) mg/dL POC Glucose 42 L 57 L 178 H (70-105) mg/dL Troponin T (0.00-0.029) ng/mL Total Protein (6.3-8.2) g/dL Albumin (3.9-5) g/dL LDL Cholesterol Direct (50-130) mg/dL 07/27/20 07/27/20 Range/Units 05:25 05:49 Hgb (11.8-15.2) gm/dl Hct (35.5-45.6) % MCV (84-94) fl MCH (28-32) pg RDW (13.2-15.2) % [place] % (Auto) (0.0-7.3) % Baso % (Auto) (0.0-1.8) % Baso # (Auto) (0.0-0.1) K/mm3 PT (12.2-14.9) Sec. Sodium 135 L (137-145) mmol/L Potassium 5.3 H (3.6-5.0) mmol/L Carbon Dioxide 18 L (22-30) mmol/L BUN 79 H (9-20) mg/dL Creatinine 10.7 H (0.8-1.3) mg/dL Glucose 154 H (75-100) mg/dL POC Glucose 141 H (70-105) mg/dL Troponin T (0.00-0.029) ng/mL Total Protein (6.3-8.2) g/dL Albumin (3.9-5) g/dL LDL Cholesterol Direct (50-130) mg/dL Assessment and Plan 59-year-old male with multiple medical issues including CKD which has advanced to end-stage renal disease. N.p.o. except sips of water with meds. Plan for PermCath today. Discussed dialysis with the patient, discussed the difference between graft and fistula. Patient is right-handed, and understands he will now need to avoid IVs, venipunctures, and blood pressure cuffs of the left upper extremity for future dialysis access options. Discussed care for PermCath. Ordered vein mapping study. Card provided. Follow-up for access creation as outpatient if patient does not have renal current recovery.
[2020-07-27] MEDS ORDERED: SODIUM CHLORIDE 0.9% 250ML 250 ML ONE (12:07)
[2020-07-27] MEDS ORDERED: HEPARIN/NS 5000 UNIT/500ML 500 ML IR ONE (12:07)
[2020-07-27] MEDS ORDERED: MIDAZOLAM 2 MG/2 ML INJ ONE (12:07)
[2020-07-27] MEDS ORDERED: HEPARIN 10,000 UNITS/10 ML VIAL ONE (12:07)
[2020-07-27] MEDS: fentaNYL 100 MCG/2 ML INJ ONE ×2 (12:46→13:05)
[2020-07-27] MEDS: LIDOCAINE (2%) 20 MG/1 ML VIAL 20 ML MDV INFILTRATI ONE ×2 (12:48→12:54)
[2020-07-27] MEDS ORDERED: LIDOCAINE (2%) 20 MG/1 ML VIAL 20 ML MDV INFILTRATI ONE (12:53)
[2020-07-27] MEDS ORDERED: LIDOCAINE 2%/EPINEPHRINE 1:100,000 VIAL (20 ML) INFILTRATI ONE (13:00)
--- NOTE | 2020-07-27 13:29 | Operative Report ---
Operative Report Operative Report: EXAM: 1. Ultrasound-guided puncture of the right internal jugular vein 2. Fluoroscopic-guided placement of a right internal jugular tunneled cuffed hemodialysis catheter. DATE: 07/27/2020 INDICATION: End-stage renal disease requiring hemodialysis access MEDICATIONS: Please see nursing report for full details. DEVICES: 23 cm tip to cuff 15 Fr dual lumen hemodialysis catheter AOC DIRECTOR COMBAT OPERATIONS OFFICER: ARVIN ZEPEDA MD CONTRAST: None PROCEDURE: The risks, benefits, and alternatives were discussed and informed consent was obtained. The patient was transported to the angiography suite in satisfactory/stable condition and was transported onto the angiography table. The patient's right internal jugular vein was assessed with ultrasound and determined to be patent prior to procedure. The patient was prepped and draped in a sterile fashion. The puncture site was anesthetized. Under sonographic guidance, the right internal jugular vein was punctured with a 21-gauge micropuncture needle and a 0.018 inch wire was advanced into the inferior vena cava. The micropuncture needle was exchanged for a transitional dilator and the wire was retracted into the right atrium to reji intravascular distance. The wire and inner dilator were removed. 0.035 inch wire was advanced through the transitional dilator into the inferior vena cava. A suitable exit site was identified on the patient's chest inferior and lateral to the venotomy. The site was anesthetized with local anesthetic and the track was anesthetized. Dermatotomy was made. The PermCath was attached to the tunneling device and tunneled between the dermatotomy to the venotomy. Over the 0.035 inch wire, serial dilatation was performed with ultimate placement of a peel-away sheath. The catheter was advanced through the peel- away sheath after the wire was removed and positioned centrally under fluoroscopic guidance. The peel-away sheath was removed. 4-0 Vicryl suture was used to close the venotomy and Dermabond was then applied. 2-0 Ethilon suture was used to secure the catheter at the dermatotomy. The catheter was charged with heparin 1000 units/mL of space. Sterile dressing and Biopatch applied. The patient was transferred from the angiography suite back to the floor in stable condition. FINDINGS: 1. Excellent flow was obtained through the dialysis catheter with 20 mL syringes. 2. The catheter tip is in the right atrium. IMPRESSION: 1. Successful ultrasound and fluoroscopically guided placement of a right internal jugular tunneled cuffed hemodialysis catheter.
[2020-07-27] MEDS: hydrALAZINE 25 MG TAB PO SCH ×2 (16:50→21:22)
--- NOTE | 2020-07-27 17:19 | Progress Note ---
Assessment and Plan (1) End stage renal disease Current Visit: Yes Status: Acute Plan to address problem: Nephrology team consulted in ED, dialysis as per renal team, strict I's/O, monitor urine output every shift, PSA level, avoid nephrotoxic agents. (2) Metabolic acidosis Current Visit: Yes Status: Acute Plan to address problem: IV bicarbonate therapy, supportive care, BMP, repeat BMP in a.m. (3) Hyperkalemia Current Visit: Yes Status: Acute Plan to address problem: Calcium gluconate, Kayexalate, insulin therapy, repeat BMP in a.m. No EKG changes. Telemetry monitoring. (4) Hyperlipidemia Current Visit: No Status: Chronic Qualifiers: Hyperlipidemia type: mixed hyperlipidemia Qualified Code(s): E78.2 - Mixed hyperlipidemia Plan to address problem: Supportive care, balanced diet, low-cholesterol diet, statin therapy as clinically indicated. (5) DVT prophylaxis Current Visit: Yes Status: Acute Plan to address problem: SCD to bilateral lower extremities while in bed, patient is ambulatory. (6) Advance care planning Current Visit: Yes Status: Acute Plan to address problem: Disease education conducted, patient is full code, care plan discussed, prognosis discussed, diagnosis discussed, patient knowledges understanding and agreement with care plan, +30 minutes. 07/27: Placed on PermCath today, getting hemodialysis at bedside. Patient appears to be clinically more stable today. Repeat potassium level following hemodialysis. We will transfer the patient to telemetry. Subjective Date of service: 07/27/20 Objective - Constitutional Vitals: Vital Signs - 12hr 07/27/20 07/27/20 07/27/20 05:20 05:30 06:00 Temperature Pulse Rate 61 62 63 Respiratory 13 11 L 13 Rate Blood Pressure 163/94 163/94 145/84 O2 Sat by Pulse 100 100 100 Oximetry O2 Sat by Pulse Oximetry [ Bilateral Throughout] 07/27/20 07/27/20 07/27/20 06:30 07:00 07:30 Temperature Pulse Rate 60 60 59 L Respiratory 13 Rate Blood Pressure 163/94 173/100 173/100 O2 Sat by Pulse 100 100 100 Oximetry O2 Sat by Pulse Oximetry [ Bilateral Throughout] 07/27/20 07/27/20 07/27/20 08:00 08:30 09:00 Temperature 98.3 F Pulse Rate 58 L 70 61 Respiratory 12 20 15 Rate Blood Pressure 169/101 162/95 162/95 O2 Sat by Pulse 100 100 97 Oximetry O2 Sat by Pulse Oximetry [ Bilateral Throughout] 07/27/20 07/27/20 07/27/20 09:30 10:00 10:30 Temperature Pulse Rate 56 L 59 L Respiratory 12 16 Rate Blood Pressure 159/97 166/94 166/94 O2 Sat by Pulse 100 100 89 Oximetry O2 Sat by Pulse Oximetry [ Bilateral Throughout] 07/27/20 07/27/20 07/27/20 11:00 13:15 13:29 Temperature Pulse Rate 60 65 64 Respiratory 12 14 Rate Blood Pressure 157/90 187/97 O2 Sat by Pulse 100 99 100 Oximetry O2 Sat by Pulse Oximetry [ Bilateral Throughout] 07/27/20 07/27/20 07/27/20 13:35 13:45 14:00 Temperature 98.3 F Pulse Rate 58 L 60 62 Respiratory 18 11 L Rate Blood Pressure 187/97 168/96 166/103 O2 Sat by Pulse 100 Oximetry O2 Sat by Pulse 100 Oximetry [ Bilateral Throughout] 07/27/20 07/27/20 07/27/20 14:15 14:30 14:45 Temperature Pulse Rate 60 60 61 Respiratory Rate Blood Pressure 145/93 144/98 138/94 O2 Sat by Pulse Oximetry O2 Sat by Pulse Oximetry [ Bilateral Throughout] 07/27/20 07/27/20 07/27/20 15:00 15:15 15:30 Temperature Pulse Rate 66 63 60 Respiratory 11 L Rate Blood Pressure 135/90 142/94 151/92 O2 Sat by Pulse 100 Oximetry O2 Sat by Pulse Oximetry [ Bilateral Throughout] 07/27/20 07/27/20 07/27/20 15:35 15:50 16:00 Temperature 97.8 F 97.8 F Pulse Rate 62 63 71 Respiratory 15 Rate Blood Pressure 143/95 150/92 146/100 O2 Sat by Pulse 99 Oximetry O2 Sat by Pulse 100 Oximetry [ Bilateral Throughout] - Labs CBC & Chem 7: 07/28/20 05:23 07/28/20 05:23 Labs: Abnormal lab results 07/26/20 07/26/20 07/26/20 Range/Units 20:36 21:00 23:39 Sodium (137-145) mmol/L Potassium (3.6-5.0) mmol/L Carbon Dioxide (22-30) mmol/L BUN (9-20) mg/dL Creatinine (0.8-1.3) mg/dL Glucose (75-100) mg/dL POC Glucose 42 L 57 L 178 H (70-105) mg/dL 07/27/20 07/27/20 Range/Units 05:25 05:49 Sodium 135 L (137-145) mmol/L Potassium 5.3 H (3.6-5.0) mmol/L Carbon Dioxide 18 L (22-30) mmol/L BUN 79 H (9-20) mg/dL Creatinine 10.7 H (0.8-1.3) mg/dL Glucose 154 H (75-100) mg/dL POC Glucose 141 H (70-105) mg/dL HEART Score - HEART Score Troponin: Troponin T 0.164 ng/mL (0.00-0.029) H* 07/26/20 15:39
[2020-07-28] MEDS: INSULIN LISPRO 100 UNIT/ML SUB-Q SCH ×5 (01:45→22:07)
[2020-07-28] MEDS: ACETAMINOPHEN 325 MG TAB PO PRN ×2 (01:46→07:40)
[2020-07-28] MEDS: hydrALAZINE 25 MG TAB PO SCH ×3 (06:17→22:06)
[2020-07-28 06:39] LABS: Basophils # (Auto) 0.1 K/mm3 (0.0-0.1); Basophils % (Auto) 0.8 % (0.0-1.8); Eosinophils # (Auto) 0.3 K/mm3 (0.0-0.4); Eosinophils % (Auto) 4.1 % (0.0-4.3); Hematocrit 29.8 % (35.5-45.6); Hemoglobin 9.5 gm/dl (11.8-15.2); Lymphocytes % (Auto) 25.1 % (13.4-35.0); Mean Corpuscular HGB Conc 32 % (32-34); Mean Corpuscular Volume 79 fl (84-94); Monocytes # (Auto) 0.8 K/mm3 (0.0-0.8); Monocytes % (Auto) 10.1 % (0.0-7.3); Platelet Count 212 K/mm3 (140-440); Red Blood Count 3.77 M/mm3 (3.65-5.03); Red Cell Distribution Width 16.2 % (13.2-15.2)
[2020-07-28 06:59] LABS: Calcium 7.9 mg/dL (8.4-10.2)
[2020-07-28] MEDS ORDERED: traMADol 50 MG TAB PO PRN (09:00)
[2020-07-28] MEDS: METOPROLOL TARTRATE 50 MG TAB PO SCH ×2 (09:16→22:06)
[2020-07-28] MEDS: amLODIPine 10 MG TAB PO SCH (09:16)
--- NOTE | 2020-07-28 09:40 | Progress Note ---
Assessment and Plan Impression: * End stage renal disease --HD initiation on Jul 27 2020 --Permcath insertion on Jul 27 2020 * Uremia * Hyperkalemia * Hypoglycemia, iatrogenic * Hypertension * Anemia secondary to ESRD Plan: * Hemodialysis today - day 2/3 today * Continue antiHTN medications. Resume Lasix daily * CXR ordered for outpatient HD clinic placement * Dose medications for renal function * AM labs * Outpatient hemodialysis clinic placement Subjective Date of service: 07/28/20 Interval history: Patient has no complaints today. Tolerated HD yesterday. Objective - Vital Signs Vital signs: Vital Signs - 12hr 07/28/20 07/28/20 07/28/20 00:03 03:59 06:17 Temperature 98.8 F 99.0 F Pulse Rate 61 67 67 Respiratory 18 18 Rate Blood Pressure 150/70 148/73 148/73 O2 Sat by Pulse 95 97 Oximetry 07/28/20 09:00 Temperature Pulse Rate Respiratory Rate Blood Pressure O2 Sat by Pulse 99 Oximetry - General Appearance General appearance: well-developed, well-nourished EENT: ATNC Respiratory: Present: Clear to Ascultation Cardiology: regular, S1S2 Gastrointestinal: normal, no tenderness, no distended Integumentary: no rash, warm and dry Neurologic: no focal deficit, alert and oriented x3 Musculoskeletal: other (1+ edema) Psychiatric: cooperative - Lab 07/28/20 05:23 07/28/20 05:23 Most recent lab results Calcium 7.9 mg/dL (8.4-10.2) L 07/28/20 05:23 Medications & Allergies - Medications Allergies/Adverse Reactions: Allergies aspirin Allergy (Verified 03/06/13 06:33) Shortness of Breath Home Medications: Home Medications Medication Instructions Recorded Confirmed Last Taken Type Metoprolol [Lopressor TAB] 50 mg PO BID #60 tablet 03/07/13 07/28/20 Unknown Rx amLODIPine 10 mg PO QDAY #30 tablet 03/07/13 07/28/20 Unknown Rx calcitrioL [Rocaltrol] 0.25 mcg PO QDAY 07/28/20 07/28/20 Unknown History cloNIDine [Catapres] 0.2 mg PO QDAY 07/28/20 07/28/20 Unknown History lisinopriL [Zestril TAB] 40 mg PO QDAY 07/28/20 07/28/20 Unknown History traMADoL [Ultram] 50 mg PO Q4HR PRN 07/28/20 07/28/20 Unknown History Active Medications: Generic Name Dose Route Start Last Admin Trade Name Jun PRN Reason Stop Dose Admin Acetaminophen 650 mg 07/26/20 18:11 07/28/20 07:40 Acetaminophen 325 Mg Tab PO 650 mg Q4H PRN Administration Pain MILD(1-3)/Fever >100.5/MICHAELS Albuterol 2.5 mg 07/26/20 18:11 Albuterol 2.5 Mg/3 Ml Nebu IH Q4HRT PRN Shortness Of Breath Amlodipine Besylate 10 mg 07/27/20 10:00 07/28/20 09:16 Amlodipine 10 Mg Tab PO 10 mg QDAY JT Administration Hydralazine HCl 50 mg 07/27/20 14:00 07/28/20 06:17 Hydralazine 25 Mg Tab PO 50 mg Q8HR JT Administration Sodium Chloride 100 mls @ 999 mls/hr 07/26/20 23:26 Nacl 0.9% IV BROOKE PRN Hypotension Insulin Human Lispro 0 unit 07/27/20 22:00 07/28/20 08:48 Insulin Lispro 100 Unit/Ml SUB-Q Not Given ACHS [facility] Protocol Metoprolol Tartrate 50 mg 07/26/20 22:00 07/28/20 09:16 Metoprolol Tartrate 50 Mg Tab PO 50 mg BID JT Administration Ondansetron HCl 4 mg 07/26/20 18:11 Ondansetron 4 Mg/2 Ml Inj IV Q8H PRN Nausea And Vomiting Sodium Chloride 10 ml 07/26/20 22:00 07/28/20 09:17 Sodium Chloride 0.9% 10 Ml Flush Syringe IV 10 ml BID JT Administration Sodium Chloride 10 ml 07/26/20 18:11 Sodium Chloride 0.9% 10 Ml Flush Syringe IV PRN PRN LINE FLUSH Tramadol HCl 50 mg 07/28/20 09:00 07/28/20 09:16 Tramadol 50 Mg Tab PO 50 mg Q4H PRN Administration Pain, Moderate (4-6)
[2020-07-28] MEDS ORDERED: SODIUM CHLORIDE 0.9% 100 ML IV PRN (10:00)
[2020-07-28] MEDS: FUROSEMIDE 40 MG TAB PO SCH (10:31)
--- NOTE | 2020-07-28 12:53 | XRay Report ---
CHEST 1 VIEW 07/28/2020 11:46 AM INDICATION / CLINICAL INFORMATION: Volume overload. COMPARISON: None available. FINDINGS: SUPPORT DEVICES: Right IJ central venous catheter appears appropriately positioned. HEART / MEDIASTINUM: No significant abnormality. LUNGS / PLEURA: No significant pulmonary or pleural abnormality. No pneumothorax. ADDITIONAL FINDINGS: No significant additional findings. IMPRESSION: 1. No acute findings. Signer Name: Arcadio Valera MD Signed: 07/28/2020 12:48 PM Workstation Name: [id number]
--- NOTE | 2020-07-28 14:11 | Progress Note ---
Assessment and Plan (1) End stage renal disease Current Visit: Yes Status: Acute Plan to address problem: Nephrology team consulted in ED, dialysis as per renal team, strict I's/O, monitor urine output every shift, PSA level, avoid nephrotoxic agents. (2) Metabolic acidosis Current Visit: Yes Status: Acute Plan to address problem: IV bicarbonate therapy, supportive care, BMP, repeat BMP in a.m. (3) Hyperkalemia Current Visit: Yes Status: Acute Plan to address problem: Calcium gluconate, Kayexalate, insulin therapy, repeat BMP in a.m. No EKG changes. Telemetry monitoring. (4) Hyperlipidemia Current Visit: No Status: Chronic Qualifiers: Hyperlipidemia type: mixed hyperlipidemia Qualified Code(s): E78.2 - Mixed hyperlipidemia Plan to address problem: Supportive care, balanced diet, low-cholesterol diet, statin therapy as clinically indicated. (5) DVT prophylaxis Current Visit: Yes Status: Acute Plan to address problem: SCD to bilateral lower extremities while in bed, patient is ambulatory. (6) Advance care planning Current Visit: Yes Status: Acute Plan to address problem: Disease education conducted, patient is full code, care plan discussed, prognosis discussed, diagnosis discussed, patient knowledges understanding and agreement with care plan, +30 minutes. 07/27: Placed on PermCath today, getting hemodialysis at bedside. Patient appears to be clinically more stable today. Repeat potassium level following hemodialysis. We will transfer the patient to telemetry. 07/28: planned for repeat hemodialysis today, need outpatient dialysis set up. consumer lending manager notified. Ordered for chest x-ray. Subjective Date of service: 07/28/20 Objective - Constitutional Vitals: Vital Signs - 12hr 07/28/20 07/28/20 07/28/20 03:59 06:17 08:37 Temperature 99.0 F 98.4 F Pulse Rate 67 67 68 Respiratory 18 18 Rate Blood Pressure 148/73 148/73 147/88 O2 Sat by Pulse 97 100 Oximetry 07/28/20 07/28/20 07/28/20 09:00 11:40 11:45 Temperature 98.4 F Pulse Rate 57 L 55 L Respiratory 18 Rate Blood Pressure 176/87 167/92 O2 Sat by Pulse 99 Oximetry 07/28/20 07/28/20 07/28/20 12:00 12:15 12:30 Temperature Pulse Rate 54 L 55 L 57 L Respiratory Rate Blood Pressure 174/93 156/88 138/82 O2 Sat by Pulse Oximetry 07/28/20 07/28/20 07/28/20 12:45 13:00 13:15 Temperature Pulse Rate 59 L 58 L 61 Respiratory Rate Blood Pressure 154/85 159/91 146/80 O2 Sat by Pulse Oximetry 07/28/20 07/28/20 07/28/20 13:30 13:40 13:50 Temperature 98.0 F Pulse Rate 58 L 59 L 57 L Respiratory 18 Rate Blood Pressure 141/89 142/80 164/79 O2 Sat by Pulse Oximetry - Labs CBC & Chem 7: 07/28/20 05:23 07/28/20 05:23 Labs: Abnormal lab results 07/27/20 07/28/20 07/28/20 Range/Units 21:25 01:52 05:23 Hgb 9.5 L (11.8-15.2) gm/dl Hct 29.8 L (35.5-45.6) % MCV 79 L (84-94) fl MCH 25 L (28-32) pg RDW 16.2 H (13.2-15.2) % [place] % (Auto) 10.1 H (0.0-7.3) % BUN (9-20) mg/dL Creatinine (0.8-1.3) mg/dL Glucose (75-100) mg/dL POC Glucose 272 H 160 H (70-105) mg/dL Calcium (8.4-10.2) mg/dL 07/28/20 07/28/20 Range/Units 05:23 07:55 Hgb (11.8-15.2) gm/dl Hct (35.5-45.6) % MCV (84-94) fl MCH (28-32) pg RDW (13.2-15.2) % [place] % (Auto) (0.0-7.3) % BUN 59 H (9-20) mg/dL Creatinine 9.4 H (0.8-1.3) mg/dL Glucose 137 H (75-100) mg/dL POC Glucose 140 H (70-105) mg/dL Calcium 7.9 L (8.4-10.2) mg/dL HEART Score - HEART Score Troponin: Troponin T 0.164 ng/mL (0.00-0.029) H* 07/26/20 15:39
--- NOTE | 2020-07-28 22:35 | Ultrasound Report ---
ULTRASOUND RENAL INDICATION / CLINICAL INFORMATION: esrd. COMPARISON: 07/18/2017 FINDINGS: The right kidney measures 8.5 cm and the left kidney measures 9.6 cm. Both kidneys are small and demo nstrate thinning of the cortex. There is increased cortical echogenicity with loss of cortical medull ashlie distinction. There are no perinephric fluid collections. There is no hydronephrosis or solid rhiannon al mass seen. 1.5 cm upper pole cyst on the right. The bladder is not fully distended but appears grossly unremarkable. IMPRESSION: 1. Renal findings suggestive of chronic medical renal disease. 2. Small right renal cyst. Signer Name: Darrell Lee MD Signed: 07/28/2020 10:31 PM Workstation Name: [id number]
[2020-07-29] MEDS: hydrALAZINE 25 MG TAB PO SCH ×2 (06:32→15:27)
[2020-07-29] MEDS: INSULIN LISPRO 100 UNIT/ML SUB-Q SCH ×3 (09:00→17:29)
[2020-07-29] MEDS ORDERED: SODIUM CHLORIDE 0.9% 100 ML IV PRN (10:25)
[2020-07-29] MEDS: FUROSEMIDE 40 MG TAB PO SCH ×2 (10:47→17:32)
[2020-07-29] MEDS: amLODIPine 10 MG TAB PO SCH ×2 (10:47→17:31)
[2020-07-29] MEDS: METOPROLOL TARTRATE 50 MG TAB PO SCH (10:47)
--- NOTE | 2020-07-29 11:15 | Discharge Summary ---
Providers - Providers Date of Admission: 07/26/20 18:11 Date of discharge: 07/29/20 Attending physician: JED VILLALTA 07/26/20 17:58 Consult to Physician [CONS] Routine Comment: Consulting Provider: GIOVANNY MARIA Physician Instructions: Reason For Exam: renal failure 07/26/20 23:23 Consult to Physician [CONS] Routine Comment: Consulting Provider: ARVIN ZEPEDA Physician Instructions: Reason For Exam: permcath insertion 07/27/20 21:06 Consult to Case Management [CONS] Routine Services Needed at Discharge: Other Notified:: CASE MANAGEMENT Comment:: OUTPATIENT HEMODIALYSIS Primary care physician: TYSHAWN COFFMAN Hospitalization Condition: Fair Disposition: [id number]/[place]-06 HOME [facility] Time spent for discharge: 34 minutes Exam - Constitutional Vitals: Temp Pulse Resp BP Pulse Ox 99.1 F 61 18 143/68 98 07/29/20 04:10 07/29/20 06:32 07/29/20 04:10 07/29/20 06:32 07/29/20 08:40 Plan Activity: advance as tolerated Weight Bearing Status: Weight Bear as Tolerated Diet: renal Follow up with: TYSHAWN COFFMAN MD [Primary Care Provider] - 3-5 Days Prescriptions: amLODIPine 10 mg PO QDAY #30 tablet hydrALAZINE [Apresoline TAB] 50 mg PO Q8HR #90 tablet Furosemide [Lasix TAB] 40 mg PO QDAY #30 tablet Metoprolol [Lopressor TAB] 50 mg PO BID #60 tablet
[2020-07-29 15:25] VITALS: BP 168/87
== END 2020-07-29 19:27 | disposition home or self-care (01) | DRG 674 ==
LOC: ED 15:20 → EEVIPCON 18:11 → IMCU 18:11 → CC1 20:14 → 4A 07-27 17:35
PROVIDERS: ADMIT Internal Medicine; ATTEND Internal Medicine
PROC: 0JH63XZ Insertion of Tunneled Vascular Access Device into Chest Subcutaneous Tissue and Fascia, Percutaneous Approach (ICD-10-PCS; principal; 2020-07-27)
PROC: B5181ZA Fluoroscopy of Superior Vena Cava using Low Osmolar Contrast, Guidance (ICD-10-PCS; 2020-07-27)
PROC: B543ZZA Ultrasonography of Right Jugular Veins, Guidance (ICD-10-PCS; 2020-07-27)
PROC: 02H633Z Insertion of Infusion Device into Right Atrium, Percutaneous Approach (ICD-10-PCS; 2020-07-27)
PROC: 5A1D70Z Performance of Urinary Filtration, Intermittent, Less than 6 Hours Per Day (ICD-10-PCS; 2020-07-27)
PROC: 5A1D70Z Performance of Urinary Filtration, Intermittent, Less than 6 Hours Per Day (ICD-10-PCS; 2020-07-28)
PROC: 5A1D70Z Performance of Urinary Filtration, Intermittent, Less than 6 Hours Per Day (ICD-10-PCS; 2020-07-29)
DX: N17.9 Acute kidney failure, unspecified (principal); I12.0 Hypertensive chronic kidney disease with stage 5 chronic kidney disease or end stage renal disease; E87.2 Acidosis; E87.5 Hyperkalemia; N18.6 End stage renal disease; E78.2 Mixed hyperlipidemia; Z20.822 Contact with and (suspected) exposure to COVID-19; E11.649 Type 2 diabetes mellitus with hypoglycemia without coma; E11.22 Type 2 diabetes mellitus with diabetic chronic kidney disease; D63.1 Anemia in chronic kidney disease; E66.9 Obesity, unspecified; J45.909 Unspecified asthma, uncomplicated; Z82.49 Family history of ischemic heart disease and other diseases of the circulatory system; Z83.3 Family history of diabetes mellitus; Z88.6 Allergy status to analgesic agent; Z79.899 Other long term (current) drug therapy; Z68.35 Body mass index [BMI] 35.0-35.9, adult
CPT/HCPCS: 36415; 36558; 71045; 76770; 77001; 80048; 80053; 80061; 80074; 81001; 82962; 84154; 84484; 85025; 85610; 85730; 93005; 96365; 96375; G0378; C1750; J1644; J1815; J2250; J3010; J7050; U0003

== ENCOUNTER 2020-11-18 10:02 | Day surgery (SDC) | payer BC ==
[2020-11-18] MEDS ORDERED: SODIUM CHLORIDE 0.9% 1000 ML 1,000 ML IV SCH (11:45)
[2020-11-18] MEDS ORDERED: ONDANSETRON 4 MG/2 ML INJ ONE (12:00)
[2020-11-18] MEDS ORDERED: dexAMETHasone 20 MG/5 ML VIAL ONE (12:00)
[2020-11-18] MEDS ORDERED: SUCCINYLCHOLINE CHLORIDE 200 MG/10 ML INJ MDV ONE (12:09)
[2020-11-18] MEDS ORDERED: LIDOCAINE MPF (2%) 20 MG/1 ML VIAL 5 ML ONE (12:09)
[2020-11-18] MEDS ORDERED: ROCURONIUM 50 MG/5 ML INJ IV ONE (12:09)
[2020-11-18] MEDS ORDERED: fentaNYL 100 MCG/2 ML INJ ONE ×2 (12:10)
[2020-11-18] MEDS ORDERED: propofoL 200 MG/20 ML VIAL IV ONE ×2 (12:10→12:11)
[2020-11-18] MEDS ORDERED: ePHEDrine SULFATE 50 MG/1 ML INJ ONE (12:11)
--- NOTE | 2020-11-18 12:30 | Anesthesia Consultation ---
Anesthesia Consult and Med Hx Date of service: 11/18/20 - Airway Anesthetic Teeth Evaluation: Good ROM Head & Neck: Adequate Mental/Hyoid Distance: Adequate Mallampati Class: Class I Intubation Access Assessment: Possibly Difficult - Pulmonary Exam CTA: Yes - Cardiac Exam Cardiac Exam: RRR - Pre-Operative Health Status ASA Pre-Surgery Classification: ASA4 Proposed Anesthetic Plan: General - Pulmonary Hx Smoking: No Hx Asthma: Yes ( A CHILD) Hx Sleep Apnea: Yes - Cardiovascular System Hx Hypertension: Yes (took metoprolol yesterday. HR 52 today) - Central Nervous System CVA: No Hx Psychiatric Problems: No - Gastrointestinal Hx Gastroesophageal Reflux Disease: No - Endocrine Hx End Stage Renal Disease: Yes (Dialysis MWF, K+ is 4.2) Hx Insulin Dependent Diabetes: Yes (FBS 217 mg/dl) - Hematic Hx Anemia: No (hgb 11.4) Hx Sickle Cell Disease: Yes (SICKLE CELL TRAIT) - Other Systems Hx Alcohol Use: No Hx Cancer: No - Additional Comments Anesthesia Medical History Comments: No GAC. No FHAC
--- NOTE | 2020-11-18 12:31 | Anesthesia Day of Surgery ---
Anesthesia Day of Surgery - Day of Surgery Patient Examined: Yes Patient H&P Reviewed: Yes Patient is NPO: Yes Beta Blockers: Yes (took yesterday, HR 52) Cardiac Clearance: No (n/a) Pulmonary Clearance: No (n/a) David's Test: N/A
[2020-11-18] MEDS ORDERED: ceFAZolin/Water 2 GM/20 ML 2 GM/20 ML SYRINGE IV ONE (12:52)
[2020-11-18] MEDS ORDERED: ceFAZolin/STERILE WATER 2 GM/20 ML SYRINGE IV NR (13:00)
[2020-11-18] MEDS ORDERED: PROTAMINE SULFATE 50 MG/5 ML INJ ONE (13:00)
[2020-11-18] MEDS ORDERED: THROMBIN (RECOMBINANT) 5,000 UNIT VIAL TP ONE ×3 (13:00→14:10)
[2020-11-18] MEDS ORDERED: BUPIVACAINE/PF (0.5%) 5 MG/1 ML 30 ML VIAL INFILTRATI ONE ×2 (13:00→14:10)
[2020-11-18] MEDS ORDERED: HEPARIN 10,000 UNITS/10 ML VIAL ONE (13:00)
[2020-11-18] MEDS ORDERED: SODIUM CHLORIDE 0.9% 250ML 250 ML ONE (13:00)
[2020-11-18] MEDS ORDERED: GELATIN SPONGE SIZE 100 TP ONE (13:00)
[2020-11-18] MEDS ORDERED: INSULIN REGULAR, HUMAN 100 UNITS/1 ML ONE (13:04)
[2020-11-18] MEDS ORDERED: INSULIN LISPRO 100 UNIT/ML SUB-Q ONE (13:07)
[2020-11-18] MEDS ORDERED: HEPARIN 10,000 UNITS/10 ML VIAL IV ONE (14:09)
[2020-11-18] MEDS ORDERED: SODIUM CHLORIDE 0.9% IRR 1,500 ML BOTTLE IR ONE (14:09)
[2020-11-18] MEDS ORDERED: SODIUM CHLORIDE 0.9% 250 ML IVPB IV ONE (14:09)
[2020-11-18] MEDS ORDERED: GELATIN SPONGE 12 X 7 TP ONE (14:11)
--- NOTE | 2020-11-18 16:05 | Post Operative Note ---
Date of procedure: 11/18/20 Pre-op diagnosis: ESRD Post-op diagnosis: same Procedure: Left Arm Basilic Vein Transposition Anesthesia: GETA Surgeon: ENRIQUETA JUAREZ Estimated blood loss: other (25ml) Pathology: none Condition: stable Disposition: PACU
[2020-11-18] MEDS ORDERED: oxyCODONE /ACETAMINOPHEN 5-325MG TAB PO PRN (16:07)
--- NOTE | 2020-11-18 16:07 | Short Stay Summary ---
Short Stay Documentation Date of service: 11/18/20 - History H&P: obtained from office Past Medical History: ESRD, hypertension - Allergies and Medications Current Medications: Allergies aspirin Allergy (Verified 11/10/20 12:05) Shortness of Breath Home Medications Medication Instructions Recorded Confirmed Last Taken Type Metoprolol [Lopressor TAB] 50 mg PO BID #60 tablet 07/29/20 11/18/20 11/17/20 20:00 Rx amLODIPine 10 mg PO QDAY #30 tablet 07/29/20 11/10/20 11/17/20 Rx hydrALAZINE [Apresoline TAB] 50 mg PO Q8HR #90 tablet 07/29/20 11/10/20 11/17/20 Rx Furosemide [Lasix TAB] 40 mg PO BID 11/10/20 11/10/20 11/17/20 History Insulin NPH Human Isophane 40 unit SQ BID 11/10/20 11/10/20 11/17/20 History [HumuLIN N] Insulin Regular, Human [Humulin R] 20 units SQ TID 11/10/20 11/10/20 11/17/20 History Active Medications Cefazolin Sodium (Cefazolin/Sterile Water 2 Gm/20 Ml Syringe) 2 gm IV PREOP NR Stop: 11/18/20 23:59 Sodium Chloride (Nacl 0.9% 1000 Ml) 1,000 mls @ 42 mls/hr IV DIRECT JT Last Admin: 11/18/20 12:10 Dose: 42 mls/hr Documented by: - Physical exam General appearance: no acute distress HEENT: Atraumatic Lungs: Normal air movement Extremities: no ischemia - Hospital course Hospital course: the patient was taken to the operating room and had a left arm av fistula creation. please refer to the operative note concerning details of the procedure. the patient tolerated the procedure well and was discharged home in stable condition. - Disposition Condition at discharge: Stable Disposition: DC-01 TO HOME OR SELFCARE Short Stay Discharge Plan Follow up with: TYSHAWN COFFMAN MD [Primary Care Provider] - 7 Days
--- NOTE | 2020-11-18 17:13 | Post Anesthesia Evaluation ---
- Post Anesthesia Evaluation Patient Participated: Yes Airway Patent: Yes Stable Respiratory Function: Yes Nausea/Vomiting: No Temp > 96.8F: Yes Pain Manageable: Yes Adequeate Hydration: Yes Anesthesia Complications: No Block Receding Appropriately: Not Applicable Patient on Ventilator: No
[2020-11-18 18:42] VITALS: BP 149/89
--- NOTE | 2020-11-18 20:12 | Operative Report ---
DATE OF SURGERY: 11/18/2020 STAFF SURGEON: Dr. Roberto Del Rosario. PREOPERATIVE DIAGNOSIS: End-stage renal disease. POSTOPERATIVE DIAGNOSIS: End-stage renal disease. PROCEDURE PERFORMED: Left arm basilic vein transposition. COMPLICATIONS: None. ESTIMATED BLOOD LOSS: 25 mL. ANESTHESIA: General. INDICATIONS FOR PROCEDURE: This is a 60-year-old gentleman with end-stage renal disease on hemodialysis via right IJ PermCath in need of upper extremity access. The patient had a vein mapping performed, which demonstrated a suitable basilic vein in the left upper arm. Therefore, the patient was slated to undergo a fistula creation. The patient was explained the risks, benefits and alternatives of the procedure, expressed understanding and wished to proceed. DESCRIPTION OF PROCEDURE: After appropriate consent was obtained, the patient was brought back to the operating room and placed on the operating table in supine position with left arm extended. The patient was given appropriate medication for general anesthesia and was intubated without difficulty. The left arm was prepped and draped in the usual sterile fashion with ChloraPrep. Appropriate preoperative antibiotics were administered and appropriate timeout was performed indicating the correct patient, procedure, and site of the procedure. We then began the operation by making a longitudinal incision in the left upper arm and antecubital fossa. This was carried through the subcutaneous tissue with combination of blunt dissection and electrocautery. The basilic vein was identified and found to be suitable for venous outflow. We then extended the incision towards the axilla. The basilic vein was exposed in its entirety. The branches were controlled with hemostats, transected and then ligated with silk suture. Once the entire vein was mobilized, we then proceeded to dissect out the brachial artery by continuing our dissection in the distal aspect of the incision by going through the bicep aponeurosis, the brachial artery was identified and found to be suitable for arterial inflow, was mobilized for appropriate distance both proximally and distally. We then proceeded to clamp the vein in the distal aspect of the incision. It was transected, flushed with heparinized saline. The stump was ligated with silk suture. We then proceeded to create a subcutaneous tunnel bringing through the vein to avoid any twisting or kinking. The patient was then given 5000 units of unfractionated heparin. After appropriate time had elapsed, we then placed vascular clamps on the brachial artery, both proximally and distally. Longitudinal arteriotomy was made with 11 blade, extended with Jeffers scissors and an end-to-side anastomosis was performed with a running 6-0 Prolene suture. Once complete, flow was established through the fistula, which had a nice palpable thrill. After several beats, the distal clamp was removed. We then proceeded to obtain hemostasis along our suture line, which was obtained with hemostatic agents. Once we were satisfied with hemostasis, we then proceeded to close the incision with the deep subcutaneous layer with interrupted 3-0 PDS and then the skin was approximated with terri. Appropriate dressing was placed. The patient tolerated the procedure well, emerged from the general anesthesia with a palpable radial pulse, was extubated in the operating room and sent to recovery room in stable condition. All sponge, instrument and needle counts were correct at completion of the operation. TID: [id number] RECEIPT: [id number] JAD/GREG
== END 2020-11-18 18:20 | disposition home or self-care (01) ==
LOC: OR 10:02
PROVIDERS: ATTEND Surgery Vascular Surgery
DX: I12.0 Hypertensive chronic kidney disease with stage 5 chronic kidney disease or end stage renal disease (principal); E11.22 Type 2 diabetes mellitus with diabetic chronic kidney disease; N18.6 End stage renal disease; E78.00 Pure hypercholesterolemia, unspecified; J45.909 Unspecified asthma, uncomplicated; G47.30 Sleep apnea, unspecified; D64.9 Anemia, unspecified; Z98.890 Other specified postprocedural states; Z99.2 Dependence on renal dialysis; Z82.5 Family history of asthma and other chronic lower respiratory diseases; Z83.3 Family history of diabetes mellitus; Z98.41 Cataract extraction status, right eye; Z80.8 Family history of malignant neoplasm of other organs or systems; Z88.6 Allergy status to analgesic agent; Z79.899 Other long term (current) drug therapy; Z79.4 Long term (current) use of insulin
CPT/HCPCS: 36819; 82962; A4649; J0330; J0690; J1100; J1644; J2405; J2704; J2720; J3010; J7030; J7050; J1815

== ENCOUNTER 2020-11-18 10:03 | Outpatient (CLI) | payer BC ==
[2020-11-18 10:47] LABS: Hematocrit 34.2 % (35.5-45.6); Hemoglobin 11.4 gm/dl (11.8-15.2); Mean Corpuscular HGB Conc 33 % (32-34); Mean Corpuscular Volume 81 fl (84-94); Platelet Count 216 K/mm3 (140-440); Red Blood Count 4.22 M/mm3 (3.65-5.03); Red Cell Distribution Width 14.5 % (13.2-15.2)
[2020-11-18 11:10] LABS: Albumin 4.2 g/dL (3.9-5); Calcium 9.4 mg/dL (8.4-10.2); Chol/HDL Ratio 4.2 %
[2020-11-18 15:30] LABS: RBC Morphology Normal; Total Cells Counted 100
[2020-11-18 15:31] LABS: Platelet Estimate Consistent w Auto
== END 2020-11-18 10:04 | disposition home or self-care (01) ==
LOC: LAB 10:03
PROVIDERS: ATTEND Internal Medicine
DX: E78.2 Mixed hyperlipidemia (principal); I10 Essential (primary) hypertension
CPT/HCPCS: 36415; 80053; 80061; 85007; 85025

== ENCOUNTER 2022-02-07 06:56 | Day surgery (SDC) | payer BC, MEDICARE ==
[2022-02-07] MEDS ORDERED: SODIUM CHLORIDE 0.9% 1000 ML 1,000 ML IV SCH (07:00)
--- NOTE | 2022-02-07 08:21 | Anesthesia Consultation ---
Anesthesia Consult and Med Hx Date of service: 02/07/22 - Airway Anesthetic Teeth Evaluation: Good, Chipped (right molar, no loose teeth) ROM Head & Neck: Adequate Mental/Hyoid Distance: Adequate Mallampati Class: Class I Intubation Access Assessment: Good - Pulmonary Exam CTA: Yes - Cardiac Exam Cardiac Exam: RRR - Pre-Operative Health Status ASA Pre-Surgery Classification: ASA3 Proposed Anesthetic Plan: MAC - Pulmonary Hx Smoking: No Hx Asthma: Yes ( A CHILD) Hx Respiratory Symptoms: No Hx Sleep Apnea: Yes (+ CPAP) - Cardiovascular System Hx Hypertension: Yes Hx Coronary Artery Disease: No - Central Nervous System Hx Seizures: No CVA: No Hx Psychiatric Problems: No - Gastrointestinal Hx Gastroesophageal Reflux Disease: No - Endocrine Hx End Stage Renal Disease: Yes (last HD 02/06/22) Hx Liver Disease: No Hx Insulin Dependent Diabetes: Yes Hx Thyroid Disease: No - Hematic Hx Anemia: No Hx Sickle Cell Disease: Yes (SICKLE CELL TRAIT) - Other Systems Hx Alcohol Use: No Hx Substance Use: No Hx Cancer: No - Additional Comments Anesthesia Medical History Comments: no hx of anesthetic complications
--- NOTE | 2022-02-07 08:22 | Anesthesia Day of Surgery ---
Anesthesia Day of Surgery - Day of Surgery Patient Examined: Yes Patient H&P Reviewed: Yes Patient is NPO: Yes Beta Blockers: Yes
[2022-02-07] MEDS ORDERED: propofoL 200 MG/20 ML VIAL IV ONE (08:46)
[2022-02-07 10:11] VITALS: BP 139/72
--- NOTE | 2022-02-07 10:16 | Short Stay Summary ---
Short Stay Documentation Date of service: 02/07/22 Narrative H&P: The patient reports for screening colonoscopy. No prior studies, average risk profile. - History Past Medical History: anemia, diabetes, hypertension, renal failure (On HD) Past Surgical History: Other (AV fistula) Social history: no significant social history - Allergies and Medications Current Medications: Allergies aspirin Allergy (Verified 11/10/20 12:05) Shortness of Breath Home Medications Medication Instructions Recorded Confirmed Last Taken Type Metoprolol [Lopressor TAB] 50 mg PO BID #60 tablet 07/29/20 11/18/20 11/17/20 20:00 Rx amLODIPine 10 mg PO QDAY #30 tablet 07/29/20 11/10/20 11/17/20 Rx hydrALAZINE [Apresoline TAB] 50 mg PO Q8HR #90 tablet 07/29/20 11/10/20 11/17/20 Rx Furosemide [Lasix TAB] 40 mg PO BID 11/10/20 11/10/20 11/17/20 History Insulin NPH Human Isophane 40 unit SQ BID 11/10/20 11/10/20 11/17/20 History [HumuLIN N] Insulin Regular, Human [Humulin R] 20 units SQ TID 11/10/20 11/10/20 11/17/20 History oxyCODONE /ACETAMINOPHEN [Percocet 1 tab PO Q6HR PRN #24 tablet 11/18/20 Unknown Rx 5/325 mg] Active Medications Sodium Chloride (Nacl 0.9% 1000 Ml) 1,000 mls @ 50 mls/hr IV DIRECT JT - Physical exam General appearance: no acute distress, well-nourished Integumentary: no rash, no growths, no abnormal pigmentation HEENT: Atraumatic, PERRLA, EOMI, Mucous membr. moist/pink Lungs: Clear to auscultation, Normal air movement Breasts: deferred Heart: Regular rate, Normal S1, Normal S2, No murmurs Gastrointestinal: normoactive bowel sounds, no tenderness, no distended, no masses, no guarding, no obese Male Genitourinary: deferred Rectal Exam: normal exam-external/orifice, normal rectal tone, no tenderness, no mass Extremities: no ischemia, pulses intact, pulses symmetrical, No edema, normal temperature, normal color, Full ROM, abnormal (AV fistula) Neurological: Normal gait, Normal speech, Strength at 5/5 X4 ext, Normal tone, Sensation intact, Cranial nerves 3-12 NL, Reflexes 2+ - Brief post op/procedure progress note Date of procedure: 02/07/22 Procedure: see dictation Estimated blood loss: none Pathology: list (1. Cecal polyp, 2. transverse colon polyp) Specimen disposition: to lab Condition: stable - Disposition Condition at discharge: Good Disposition: 01 HOME / SELF CARE / HOMELESS - Discharge Diagnoses (1) Colon cancer screening Status: Acute Short Stay Discharge Plan Activity: other (no driving for 24 hours) Weight Bearing Status: Weight Bear as Tolerated Diet: diabetic, renal Follow up with: TYSHAWN COFFMAN MD [Primary Care Provider] - 7 Days
--- NOTE | 2022-02-07 10:19 | Operative Report ---
Operative Report Operative Report: Date of procedure: 02/07/2022 Preprocedure diagnosis: Colon cancer screening, average risk profile. No prior studies Post procedure diagnosis: Diminutive cecal polyp. 7 mm pedunculated transverse colon polyp. Procedure: Colonoscopy to the cecum with cold and hot snare polypectomies. Endoscopist: Dr. Long Anesthesia: Monitored anesthesia care per anesthesia department Estimated blood loss: 0 Medications: Monitored anesthesia care. See separate report by anesthesia for details. After careful discussion of the nature and purpose of the procedure as well as details of the technique risks benefits and alternatives the patient gave consent. Please see recent history and physical from the office. The patient was placed in the left lateral decubitus position and medicated per anesthesia. A rectal exam was performed sphincter tone was normal there were no masses palpable. The Get[employer] 570 scope was passed transanally and advanced under continuous direct vision without difficulty to the cecum. The colon was well prepared. The cecum revealed a 5 mm sessile polyp. The polyp was removed with a cold snare completely and retrieved by suction. The ascending colon was normal and on forward and retroflexed views. The transverse colon revealed a 7 mm pedunculated polyp. The polyp was removed with snare electrocautery and retrieved by suction. The descending colon and sigmoid colon were normal. The rectum was normal on forward and retroflexed views. The procedure was well-to lerated overall and the patient was observed in recovery. Conclusions: 5 mm diminutive cecal polyp, 7 mm pedunculated transverse colon polyp. Plan: Await pathology. Repeat colonoscopy in 5 years. Signed electronically: Chirag Long M.D.
== END 2022-02-07 06:57 | disposition home or self-care (01) ==
LOC: GIO 06:56 → EEVIPCON 06:56 → GIO 06:57
PROVIDERS: ATTEND Internal Medicine Gastroenterology
DX: Z12.11 Encounter for screening for malignant neoplasm of colon (principal); K63.5 Polyp of colon; I12.0 Hypertensive chronic kidney disease with stage 5 chronic kidney disease or end stage renal disease; E11.22 Type 2 diabetes mellitus with diabetic chronic kidney disease; N18.6 End stage renal disease; E78.5 Hyperlipidemia, unspecified; J45.909 Unspecified asthma, uncomplicated; G47.33 Obstructive sleep apnea (adult) (pediatric); Z98.890 Other specified postprocedural states; Z88.6 Allergy status to analgesic agent; Z88.8 Allergy status to other drugs, medicaments and biological substances; Z79.899 Other long term (current) drug therapy; Z98.41 Cataract extraction status, right eye; Z99.2 Dependence on renal dialysis; Z83.3 Family history of diabetes mellitus; Z80.0 Family history of malignant neoplasm of digestive organs; Z82.5 Family history of asthma and other chronic lower respiratory diseases
CPT/HCPCS: 45385; 82962; 88305; J2704; J7030